=== PATIENT | female | born 1985 | race Caucasian/White ===

== ENCOUNTER 2022-02-16 21:28 | Emergency (ER) | payer MEDICAID, OTHER ==
[~2022-02-16] VITALS: Ht 162.6 cm; Wt 106.6 kg
[~2022-02-16 21:28] MED LIST: ALBU17AE19 IH; TRAM50TA2
[2022-02-16 21:38] VITALS: BP_SYST 99
[2022-02-16] MEDS ORDERED: IBUPROFEN 600 MG TABLET PO ONE (23:00)
[2022-02-16] MEDS ORDERED: IBUP-1969 PO (23:53)
[2022-02-16] MEDS ORDERED: TRAM50TA PO (23:53)
[2022-02-17 00:56] VITALS: BP_SYST 116
== END 2022-02-17 00:56 | disposition home or self-care (01) ==
LOC: SED 21:28
DX: S92.351A Displaced fracture of fifth metatarsal bone, right foot, initial encounter for closed fracture (principal); S93.402A Sprain of unspecified ligament of left ankle, initial encounter; J45.909 Unspecified asthma, uncomplicated; Z88.5 Allergy status to narcotic agent; Y04.8XXA Assault by other bodily force, initial encounter; Y93.89 Activity, other specified; Y92.89 Other specified places as the place of occurrence of the external cause; Y99.8 Other external cause status
CPT/HCPCS: 99284